=== PATIENT | female | born 1945 | race Caucasian/White ===

== ENCOUNTER → 2016-08-17 | Outpatient (CLI) | payer OTHER ==
[~2016-08-17] MED LIST: AMLH/550 PO; ATEN50TA8 PO; DICY10CA55 PO; GABA-113 PO; HYOS1TAB PO; LORA-741 PO; POLY335019 PO; SPIR25TA89 PO; TRAM-453 PO
== END | disposition home or self-care (01) ==
LOC: C.LABSPEC 09:00
PROVIDERS: ATTEND Student in an Organized Health Care Education/Training Program
DX: R33.9 Retention of urine, unspecified (principal); M48.00 Spinal stenosis, site unspecified

== ENCOUNTER 2017-08-21 15:12 | Emergency (ER) | payer OTHER ==
[~2017-08-21] VITALS: Ht 157.5 cm; Wt 52.5 kg
[2017-08-21 15:23] VITALS: TEMP 36.8; Ht 157.5 cm; Wt 52.5 kg
[2017-08-21] MEDS ORDERED: SODIUM CHLORIDE 0.9% 500ML 500 ML IV SCH (16:30)
[2017-08-21] MEDS ORDERED: ONDANSETRON 8 MG/54 ML D5W IV ONE (16:30)
[2017-08-21] MEDS ORDERED: FENTANYL CITRATE INJ 50 MCG/1 ML 2 ML VIAL IV ONE (16:30)
[2017-08-21] MEDS ORDERED: NRN800 PO (16:36)
[2017-08-21] MEDS ORDERED: NILO150C PO (16:39)
[2017-08-21] MEDS ORDERED: ACET-1256 PO (16:40)
--- NOTE | 2017-08-21 16:50 | EMERGENCY ROOM VISIT NOTE ---
History First contact with patient: 15:57 Chief Complaint: FLU LIKE SX Stated Complaint: FLU History of Present Illness The patient is a 71 year old female with history of HTN, CML on Tansign ( followed by [facility]) who presents to the Emergency Room with 4 day history of lower abdominal pain, diarrhea, nausea/vomiting. Lower abdominal pain is dull, 8/10 intensity, constant. no aggravating or alleviating factors. She denies fever, chills. She denies cough, sore throat, but reports ongoing rhinorrhea. She initially went [facility] for evaluation but was told due to lack of beds she would have to travel to [facility]. Source of History: patient, family Position: abdomen Symptom Intensity: moderate Quality: dull Associated Symptoms: + nausea, + vomiting, + abdominal pain, No fevers, No chills Review of Systems Pt denies headache, change in vision, fevers, chest pain, shortness of breath, pain with urination, and melena. Pt reports abdominal pain nausea, vomiting, diarrhea otherwise refer to HPI Past Medical/Surgical History Medical Problems: (1) CML (chronic myelocytic leukemia) (2) Diverticulosis (3) Traumatic aortic injury with repair Family History Patient reports no known family medical history. Social History Smoking Status: Never Smoker Alcohol Use: none Drug Use: none Marital Status: Housing Status: lives with significant other Occupation Status: retired Current/Historical Medications Scheduled Acetaminophen (Tylenol), 500 MG PO UD Atenolol (Tenormin), 1 TAB PO QAM Cephalexin Monohydrate (Keflex), 500 MG PO QID Gabapentin (Gabapentin), 800 MG PO TID Nilotinib (Tasigna), 1 CAP PO HS Scheduled PRN Lorazepam (Ativan), 0.5 MG PO Q8 PRN for Anxiety Ondansetron Hcl (Zofran), 8 MG PO QID PRN for Nausea Tramadol Hcl (Ultram), 50 MG PO 4-6 HOURS PRN for Pain Physical Exam Vital Signs Date Time Temp Pulse Resp B/P (MAP) Pulse Ox O2 Delivery O2 Flow Rate FiO2 08/21/17 18:55 83 18 152/76 97 Room Air 08/21/17 15:23 36.8 98 18 192/85 95 Room Air Physical Exam GENERAL: alert, thin , no distress EYE EXAM: normal conjunctiva, PERRL and EOM's grossly intact OROPHARYNX: no exudate, no erythema, lips, buccal mucosa, and tongue normal and mucous membranes are moist NECK: supple, no nuchal rigidity, no adenopathy, non-tender LUNGS: Clear to auscultation. Normal chest wall mechanics HEART: no murmurs, S1 normal and S2 normal ABDOMEN: abdomen soft, Tenderness to palpation in RLQ, LLQ. normo-active bowel sounds, no masses, no rebound or guarding. SKIN: no rashes and no bruising UPPER EXTREMITIES: upper extremities are grossly normal. LOWER EXTREMITIES: No pitting edema. NEURO EXAM: Normal sensorium, cranial nerves II-XII grossly intact, normal speech Medical Decision & Procedures Laboratory Results 08/21/17 17:00 Red Blood Count 4.70, Mean Corpuscular Volume 90.0, Mean Corpuscular Hemoglobin 30.6, Mean Corpuscular Hemoglobin Concent 34.0, Mean Platelet Volume 10.1, Neutrophils (%) (Auto) 55.9, Lymphocytes (%) (Auto) 35.1, Monocytes (%) (Auto) 7.1, Eosinophils (%) (Auto) 1.2, Basophils (%) (Auto) 0.4, Neutrophils # (Auto) 4.25, Lymphocytes # (Auto) 2.67, Monocytes # (Auto) 0.54, Eosinophils # (Auto) 0.09, Basophils # (Auto) 0.03 08/21/17 17:00 Test 08/21/17 17:00 08/21/17 19:40 White Blood Count 7.60 K/uL (4.8-10.8) Red Blood Count 4.70 M/uL (4.2-5.4) Hemoglobin 14.4 g/dL (12.0-16.0) Hematocrit 42.3 % (37-47) Mean Corpuscular Volume 90.0 fL (80-100) Mean Corpuscular Hemoglobin 30.6 pg (25-34) Mean Corpuscular Hemoglobin Concent 34.0 g/dl (32-36) Platelet Count 240 K/uL (130-400) Mean Platelet Volume 10.1 fL (7.4-10.4) Neutrophils (%) (Auto) 55.9 % Lymphocytes (%) (Auto) 35.1 % Monocytes (%) (Auto) 7.1 % Eosinophils (%) (Auto) 1.2 % Basophils (%) (Auto) 0.4 % Neutrophils # (Auto) 4.25 K/uL (1.4-6.5) Lymphocytes # (Auto) 2.67 K/uL (1.2-3.4) Monocytes # (Auto) 0.54 K/uL (0.11-0.59) Eosinophils # (Auto) 0.09 K/uL (0-0.5) Basophils # (Auto) 0.03 K/uL (0-0.2) RDW Standard Deviation 43.5 fL (36.4-46.3) RDW Coefficient of Variation 13.2 % (11.5-14.5) Immature Granulocyte % (Auto) 0.3 % Immature Granulocyte # (Auto) 0.02 K/uL (0.00-0.02) Anion Gap 6.0 mmol/L (3-11) Est Creatinine Clear Calc Drug Dose 54.4 ml/min Estimated GFR () 93.8 Estimated GFR (Non- 80.9 BUN/Creatinine Ratio 19.2 (10-20) Calcium Level 9.2 mg/dl (8.5-10.1) Total Bilirubin 0.6 mg/dl (0.2-1) Aspartate Amino Transf (AST/SGOT) 18 U/L (15-37) Alanine Aminotransferase (ALT/SGPT) 17 U/L (12-78) Alkaline Phosphatase 98 U/L (45-117) Total Protein 7.5 gm/dl (6.4-8.2) Albumin 3.7 gm/dl (3.4-5.0) Globulin 3.8 gm/dl (2.5-4.0) Albumin/Globulin Ratio 1.0 (0.9-2) Lipase 201 U/L (73-393) Urine Color YELLOW Urine Appearance CLEAR (CLEAR) Urine pH 5.0 (4.5-7.5) Urine Specific [place] 1.012 (1.000-1.030) Urine Protein TRACE (NEG) Urine Glucose (UA) NEG (NEG) Urine Ketones 1+ (NEG) Urine Occult Blood NEG (NEG) Urine Nitrite NEG (NEG) Urine Bilirubin NEG (NEG) Urine Urobilinogen NEG (NEG) Urine Leukocyte Esterase SMALL (NEG) Urine WBC (Auto) 10-30 /hpf (0-5) Urine RBC (Auto) 0-4 /hpf (0-4) Urine Hyaline Casts (Auto) 0 /lpf (0-5) Urine Epithelial Cells (Auto) 10-20 /lpf (0-5) Urine Bacteria (Auto) NEG (NEG) Laboratory results per my review. Medications Administered Medications (Trade) Dose Ordered Sig/Portia Route Start Time Stop Time Status Last Admin Dose Admin Sodium Chloride 500 ml @ 999 mls/hr Q31M IV 08/21/17 16:30 08/21/17 21:26 DC 08/21/17 17:22 999 MLS/HR Ondansetron HCl (Zofran 8mg Iv) 8 mg NOW ONCE IV 08/21/17 16:30 08/21/17 16:31 DC 08/21/17 18:54 8 MG Fentanyl Citrate (Fentanyl Inj) 25 mcg NOW ONCE IV 08/21/17 16:30 08/21/17 16:33 DC 08/21/17 17:29 25 MCG Medical Decision 71 yo F with CML on Tasigna, HTN presenting with abdominal pain, nausea, diarrhea, afebrile on arrival, hypertensive on arrival CBC unremarkable CMP unremarkable Lipase negative CXR/Abdominal XR: no acute cardiopulmonary disease, no evidence of intra- abdominal pathology UA: small leukocyte esterase, 10-30 WBC, consistent with UTI -Given 500 C Bolus NS -Given Zofran 8 mg IV -Given Fentanyl 25 mcg IV Given negative CXR/ Abdominal XR, negative CBC, CMP, Lipase, presentation of nausea, vomiting, diarrhea, abdominal pain likely secondary to viral gastroenteritis. Upon reevaluation after Zofran, Fentanyl administration as above the patient is comfortable. UA was consistent with UTI likely secondary to diarrhea. Patient was prescribed Keflex 500 qid x 7 days on discharge. Elevated BP on arrival likely situational and improved by discharge. I discussed the findings and the treatment plan with the patient. She is being sent home with PO Zofran with follow up to PCP within 1 week. Head Trauma GCS Score: 15 Medication Reconcilliation Current Medication List: was personally reviewed by me Blood Pressure Screening Patient's blood pressure: Elevated blood pressure Blood pressure disposition: Elevated BP felt to be situational Impression Primary Impression: Viral gastroenteritis Additional Impression: UTI (urinary tract infection) Departure Information Dispostion Home / Self-Care Condition GOOD Prescriptions Cephalexin Monohydrate (Keflex) 500 Mg Cap 500 MG PO QID for 7 Days, #28 CAP Prov: Yehuda Phillips MD 08/21/17 Ondansetron Hcl (ZOFRAN) 8 Mg Tab 8 MG PO QID Y for Nausea for 5 Days, #20 TAB Prov: Yehuda Phillips MD 08/21/17 Referrals Rayray Tran M.D. (PCP) Patient Instructions ED Gastroenteritis Viral, ED UTI Cystitis Female, [facility] Additional Instructions You presented with Nausea, vomiting, diarrhea and abdominal discomfort. Your urinalysis was positive for a Urinary tract infection. Your other lab work and Chest Xray, abdominal Xray were negative. Your symptoms are likely attributed to viral gastroenteritis otherwise known as stomach flu. Please maintain hydration with oral fluids and take Tylenol or Motrin for pain/ fever. If you experience worsening abdominal pain, uncontrolled fevers, chills or you feel concerned return to Emergency Dept. You will be sent home with an antibiotic ( Keflex) for 1 week for the urinary tract infection and an anti-nausea medication be taken as needed. It is also very important maintain hydration with water. Please follow up with primary care provider within 1 week. Resident Tracking Resident Involvement: Resident Care Provided Care Provided: Adult ED Problem Qualifiers
[2017-08-21 17:18] LABS: BASO % 0.4 %; BASO ABS # 0.03 K/uL (0-0.2); EOS % 1.2 %; EOS ABS # 0.09 K/uL (0-0.5); HEMATOCRIT 42.3 % (37-47); HEMOGLOBIN 14.4 g/dL (12.0-16.0); IG# 0.02 K/uL (0.00-0.02); LYMPH % 35.1 %; LYMPH ABS # 2.67 K/uL (1.2-3.4); MEAN CORPUSCULAR HEMOGLOBIN 30.6 pg (25-34); MEAN PLATELET VOLUME 10.1 fL (7.4-10.4); MONO % 7.1 %; MONO ABS # 0.54 K/uL (0.11-0.59); NEUT % 55.9 %; NEUT ABS # 4.25 K/uL (1.4-6.5); PLATELET COUNT 240 K/uL (130-400); RED CELL DISTRIBUTION WIDTH CV 13.2 % (11.5-14.5); RED CELL DISTRIBUTION WIDTH SD 43.5 fL (36.4-46.3)
[2017-08-21 17:39] LABS: ALBUMIN 3.7 gm/dl (3.4-5.0); CALCIUM 9.2 mg/dl (8.5-10.1); CREATININE 0.74 mg/dl (0.60-1.20); POTASSIUM 3.7 mmol/L (3.5-5.1)
[2017-08-21 17:41] LABS: TOTAL PROTEIN 7.5 gm/dl (6.4-8.2)
--- NOTE | 2017-08-21 17:56 | DIAGNOSTIC IMAGING REPORT ---
ABDOMEN 2VIEW W/PA CHEST RTN CLINICAL HISTORY: 71 years-old Female presenting with abdominal pain. TECHNIQUE: PA view of the chest and supine and left lateral decubitus views of the abdomen were obtained. COMPARISON: Chest x-ray from 11/13/[address] of the abdomen and pelvis from 08/15/2015. FINDINGS: Atherosclerosis of aortic arch. Cardiac silhouette enlarged. Mediastinal surgical clips noted. Elevation of the left hemidiaphragm as on prior exam. No new focal infiltrate. Chronic blunting of the left costophrenic angle. No large effusion or pneumothorax. Bronchial wall thickening may be present. Cholecystectomy clips noted. Mild gaseous distention of the right colon. No bowel obstruction. Gas noted in the rectum.. No gross pneumoperitoneum. Left ovarian calcification projects over the sacrum. Allowing for bowel gas and stool, no calcifications to suggest nephrolithiasis. Multiple pelvic phleboliths abdomen. Right shoulder arthroplasty. Osteopenia suspected. Laminectomy defects of L2-L4. No acute osseous injury is apparent. IMPRESSION: 1. No acute cardiopulmonary disease. 2. No radiographic evidence of acute intra-abdominal pathology. Electronically signed by: Moisés Palomino M.D. 08/21/2017 5:55 PM Dictated Date/Time: 08/21/2017 5:52 PM
--- NOTE | 2017-08-21 18:11 | EMERGENCY ROOM VISIT NOTE ---
ED Visit Note First contact with patient: 15:55 Resident Physician Supervision Note: I was present with Dr. Phillips during the history and exam. I discussed the case with the resident and agree with the findings and plan as documented in the note. Documented By: Tejas Camargo
[2017-08-21 18:55] VITALS: BP 152/76; PULSE 83; O2SAT 97
[2017-08-21] MEDS ORDERED: ONDA8TAB6 PO (19:55)
[2017-08-21] MEDS ORDERED: CEPH500C PO (20:28)
== END 2017-08-21 20:41 | disposition home or self-care (01) ==
LOC: C.EDB 15:13 → C.EDC 20:41
DX: A08.4 Viral intestinal infection, unspecified (principal); N39.0 Urinary tract infection, site not specified; Z79.899 Other long term (current) drug therapy; I10 Essential (primary) hypertension; Z85.6 Personal history of leukemia